=== PATIENT | male | born 1965 | race Two or more races ===

== ENCOUNTER 2016-12-05 19:07 | Observation (INO) | payer OTHER ==
[2016-12-05] MEDS ORDERED: VANCOMYCIN 1,000 MG in DEXTROSE 5%-WATER - 250 ML IVPB ONE (21:08)
[2016-12-05] MEDS ORDERED: AMPICILLIN NA/SULBACTAM NA 3 GM in SODIUM CHLORIDE 100 ML IVPB ONE (21:08)
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
[2016-12-05] MEDS ORDERED: VANCOMYCIN 1 GRAM (PRE-DOCKED) 250 ML IVPB ONE (21:35)
[2016-12-05 21:39] LABS: BASOPHIL 0.4 % (0-2.0); EOSINOPHIL 1.7 % (0-4.5); MCHC 33.6 g/dl (32.0-35.9); MEAN CELL VOLUME 92.3 fl (80-96); MEAN PLT VOLUME 8.3 fl (7.5-11.1); NEUTROPHILS 65.1 % (42.8-82.8); PLATELET COUNT 242 K/MM3 (134-434); RDW 13.2 % (11.9-15.9); WHITE BLOOD COUNT 11.6 K/mm3 (4.0-10.0)
[2016-12-05 21:51] LABS: INR 0.96 (0.82-1.09); PROTHROMBIN TIME (PATIENT) 10.6 SEC (9.98-11.88)
[2016-12-05 22:00] LABS: ALK PHOS 49 U/L (45-117); ANION GAP 11 (8-16); BILIRUBIN,TOTAL 0.5 mg/dL (0.2-1.0); CO2 27 mmol/L (21-32); COCKROFT - GAULT 103.52; CREATININE 0.9 mg/dL (0.7-1.3); GLUCOSE,RANDOM 93 mg/dL (74-106); SGOT/AST 19 U/L (15-37); SGPT/ALT 37 U/L (12-78); TOT PROT 7.5 g/dl (6.4-8.2)
[2016-12-05] MEDS ORDERED: SODIUM CHLORIDE 0.9% 500 ML INFUS.BAG IV ONE (22:52)
[2016-12-05] MEDS ORDERED: INDOMETHACIN 50 MG CAPSULE PO ONE (22:52)
[2016-12-05] MEDS ORDERED: ALLOPURINOL 100 MG TABLET (FP) PO ONE (23:11)
[2016-12-05] MEDS ORDERED: COLCHICINE 0.6 MG TABLET (FP) PO ONE (23:12)
[2016-12-05] MEDS ORDERED: COLCHICINE 0.6 MG TABLET (FP) ONE (23:18)
[2016-12-05] MEDS ORDERED: ALLOPURINOL 100 MG TABLET (FP) ONE (23:18)
[2016-12-06] MEDS ORDERED: OXYCODONE/APAP 5/325MG COMBO TABLET PO ONE (00:27)
[2016-12-06] MEDS ORDERED: OXYCODONE/APAP 5/325MG COMBO TABLET ONE (00:27)
[2016-12-06] MEDS ORDERED: ONDANSETRON 4 MG/2 ML VIAL IVPB PRN (00:48)
[2016-12-06] MEDS ORDERED: ACETAMINOPHEN 325 MG TABLET (FP) PO PRN (00:48)
[2016-12-06] MEDS ORDERED: oxyCODONE HCL 5 MG TABLET PO PRN (00:49)
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
[2016-12-06 03:31] VITALS: BMI 25.7
[2016-12-06 08:17] LABS: BASOPHIL 0.2 % (0-2.0); EOSINOPHIL 1.3 % (0-4.5); MCH 31.5 pg (25.7-33.7); MEAN CELL VOLUME 92.9 fl (80-96); MEAN PLT VOLUME 8.6 fl (7.5-11.1); NEUTROPHILS 54.6 % (42.8-82.8); PLATELET COUNT 205 K/MM3 (134-434); RDW 13.5 % (11.9-15.9); WHITE BLOOD COUNT 9.6 K/mm3 (4.0-10.0)
[2016-12-06 08:50] LABS: ALBUMIN 3.3 g/dl (3.4-5.0); ALK PHOS 39 U/L (45-117); ANION GAP 11 (8-16); BILIRUBIN,TOTAL 0.8 mg/dL (0.2-1.0); CALCIUM 8.8 mg/dL (8.5-10.1); CO2 26 mmol/L (21-32); COCKROFT - GAULT 115.71; CREATININE 0.8 mg/dL (0.7-1.3); GLUCOSE,RANDOM 144 mg/dL (74-106); SGOT/AST 10 U/L (15-37); SGPT/ALT 26 U/L (12-78)
[2016-12-06] MEDS ORDERED: COLCHICINE 0.6 MG TABLET (FP) PO SCH (10:00)
--- NOTE | 2016-12-06 11:06 | EKG ---
Test Reason : Blood Pressure : / mmHG Vent. Rate : 065 BPM Atrial Rate : 065 BPM P-R Int : 160 ms QRS Dur : 082 ms QT Int : 386 ms P-R-T Axes : 050 056 044 degrees QTc Int : 401 ms NORMAL SINUS RHYTHM NORMAL ECG NO PREVIOUS ECGS AVAILABLE Confirmed by LAW TUBBS MD ([id number]) on 12/06/2016 11:05:39 AM Referred By: Confirmed By:LAW TUBBS MD
--- NOTE | 2016-12-06 16:47 | DS ---
Physical Exam: SUBJECTIVE: Patient seen and examined OBJECTIVE: Vital Signs Period Temp Pulse Resp BP Sys/Todd Pulse Ox Last 24 Hr 98 F-98.6 F 68-91 16-20 110-136/64-78 95-100 PHYSICAL EXAM GENERAL: The patient is awake, alert, and fully oriented, in no acute distress. HEAD: Normal with no signs of trauma. EYES: PERRL, extraocular movements intact, sclera anicteric, conjunctiva clear. LUNGS: Breath sounds equal, clear to auscultation bilaterally, no wheezes, no crackles, no accessory muscle use. HEART: Regular rate and rhythm, S1, S2 without murmur, rub or gallop. ABDOMEN: Soft, nontender, nondistended, normoactive bowel sounds, no guarding, no rebound, no hepatosplenomegaly, no masses. EXTREMITIES: LEFT KNEE swollen, warm to touch, no erythema NEUROLOGICAL: Cranial nerves II through XII grossly intact. Normal speech, gait not observed. LABS Laboratory Results - last 24 hr 12/06/16 12/06/16 12/06/16 05:32 05:32 05:32 WBC 9.6 RBC 3.94 L Hgb 12.4 D Hct 36.6 MCV 92.9 MCHC 34.0 RDW 13.5 Plt Count 205 MPV 8.6 Neutrophils % 54.6 Lymphocytes % 32.8 D Monocytes % 11.1 H Eosinophils % 1.3 Basophils % 0.2 ESR Sodium 141 Potassium 3.9 Chloride 104 Carbon Dioxide 26 Anion Gap 11 BUN 19 H D Creatinine 0.8 Creat Clearance w eGFR > 60 Random Glucose 144 H D Calcium 8.8 Total Bilirubin 0.8 D AST 10 L D ALT 26 D Alkaline Phosphatase 39 L D C-Reactive Protein 1.8 H D Total Protein 6.0 L Albumin 3.3 L 12/06/16 05:32 WBC RBC Hgb Hct MCV MCHC RDW Plt Count MPV Neutrophils % Lymphocytes % Monocytes % Eosinophils % Basophils % ESR 16 Sodium Potassium Chloride Carbon Dioxide Anion Gap BUN Creatinine Creat Clearance w eGFR Random Glucose Calcium Total Bilirubin AST ALT Alkaline Phosphatase C-Reactive Protein Total Protein Albumin HOSPITAL COURSE: Date of Admission:12/06/16 Date of Discharge: 12/06/16 51 year-old male with a significant PMH of gout, presented to the ED with left knee pain and swelling x 5 days. Prior to knee swelling up, patient knelt on his knees for about 15 minutes. After that the knee started to swell and became progressively more painful until patient could not take the pain anymore and came to the ED. Patient was treated with Colchicine and IV fluids. He was given one dose of Vanc and one dose of Zosyn in the ED, but he was afebrile and had no leukocytosis. Patient had significant pain relief. He was discharged to home with prescriptions for indomethacin and percocet, and advised to follow up with his PCP. Minutes to complete discharge: 35 Discharge Summary Reason For Visit: KNEE PAIN INABILITY TO WALK SWELLING Current Active Problems Gout (Acute) Inability to walk (Acute) Infectious joint disease (Acute) Knee pain, acute (Acute) Swelling of knee joint, left (Acute) Condition: Improved - Instructions Diet, Activity, Other Instructions: One prescription has been sent to your pharmacy for Percocet. Take this medicaton only as needed. Stay well-hydrated and take a stool softener daily. A second prescription has been sent for indomethicin which is an anti- inflammatory. Take this medication instead of colchicine. A third prescription has been sent for protonix which you should take for as long as you are taking indomethicin. You should follow up with your primary care provider, Dr. Abbasi, in one week. Return to the emergency department for any new or worsening symptoms. Referrals: Ashutosh Abbasi MD [Staff Physician] - Disposition: HOME - Home Medications Comprehensive Discharge Medication List: Ambulatory Orders Indomethacin 25 mg PO BID #14 capsule 12/06/16 Oxycodone HCl/Acetaminophen [Percocet 5-325 mg Tablet] 1 tab PO Q6H #20 tablet MDD 4 12/06/16 Pantoprazole Sodium [Protonix] 40 mg PO DAILY #7 tablet. 12/06/16 This patient is new to me today: Yes Date on this admission: 12/09/16 Emergency Visit: Yes ED Registration Date: 12/06/16 Care time: The patient presented to the Emergency Department on the above date and was hospitalized for further evaluation of their emergent condition. Critical Care patient: No - Discharge Referral Referred to [facility] Yes Physician Referral: Ashutosh Wright MD ([facility])
[2016-12-06 17:21] VITALS: BP 114/79; PULSE 72; TEMP 98
== END 2016-12-06 18:13 | disposition home or self-care (01) ==
LOC: JER 19:07 → JERBED 12-06 01:37 → J6S 12-06 03:03
PROVIDERS: ADMIT Internal Medicine; ATTEND Nurse Practitioner Acute Care
PROC: 3E03329 Introduction of Other Anti-infective into Peripheral Vein, Percutaneous Approach (ICD-10-PCS; principal; 2016-12-06)
PROC: 3E0337Z Introduction of Electrolytic and Water Balance Substance into Peripheral Vein, Percutaneous Approach (ICD-10-PCS; 2016-12-06)
DX: M10.9 Gout, unspecified (principal); M25.462 Effusion, left knee; M01.X62 Direct infection of left knee in infectious and parasitic diseases classified elsewhere; F17.210 Nicotine dependence, cigarettes, uncomplicated; M25.562 Pain in left knee; R26.2 Difficulty in walking, not elsewhere classified; D72.829 Elevated white blood cell count, unspecified; R00.0 Tachycardia, unspecified
CPT/HCPCS: 36415; 71020-TC; 73560-TC-LT; 80053; 83605; 84550; 85025; 85610; 85651; 86140; 86850; 86900; 86901; 93005; 93010; 97116-GP; 97161-GP; 99284-25; G0378

== ENCOUNTER 2023-09-13 04:53 | Day surgery (SDC) | payer OTHER ==
[2023-09-07 13:57] VITALS: BMI 26.1
[2023-09-13 08:44] VITALS: TEMP 98
[2023-09-13 09:09] VITALS: PULSE 65; RESP 18
[2023-09-13 09:34] VITALS: BP 132/91
== END 2023-09-13 09:35 | disposition home or self-care (01) ==
LOC: JASU-ENDO 04:53
PROVIDERS: ATTEND Internal Medicine Gastroenterology
PROC: 0DB98ZX Excision of Duodenum, Via Natural or Artificial Opening Endoscopic, Diagnostic (ICD-10-PCS; 2023-09-13)
PROC: 0DB78ZX Excision of Stomach, Pylorus, Via Natural or Artificial Opening Endoscopic, Diagnostic (ICD-10-PCS; 2023-09-13)
PROC: 0DB68ZX Excision of Stomach, Via Natural or Artificial Opening Endoscopic, Diagnostic (ICD-10-PCS; 2023-09-13)
PROC: 0DBP8ZX Excision of Rectum, Via Natural or Artificial Opening Endoscopic, Diagnostic (ICD-10-PCS; principal; 2023-09-13 08:00)
DX: Z12.11 Encounter for screening for malignant neoplasm of colon (principal); D12.8 Benign neoplasm of rectum; K64.8 Other hemorrhoids; K64.4 Residual hemorrhoidal skin tags; K57.30 Diverticulosis of large intestine without perforation or abscess without bleeding; Z86.010 Personal history of colon polyps; K29.50 Unspecified chronic gastritis without bleeding; K21.00 Gastro-esophageal reflux disease with esophagitis, without bleeding; K31.7 Polyp of stomach and duodenum
CPT/HCPCS: 88305-TC; 88342-TC